=== PATIENT | male | born 1965 | race Two or more races ===

== ENCOUNTER 2019-07-25 12:34 | Emergency (ER) | payer SELFPAY ==
[~2019-07-25] VITALS: Ht 162.6 cm; Wt 90.7 kg
[2019-07-25 12:27] VITALS: BP 125/82
--- NOTE | 2019-07-25 12:33 | NUR ---
ED Nurse Note: pt walked in to ER from home with family due to coughing with white phlem and congestion x 3 days. pt also c/o upper abdoman muscle pain due to consistant cough. pt aao x4 and U[place] speaker but son is translating. pt is ambulatory, calm and cooperative. skin dry and psorasis with old scars noted. no cardiac or pulmonary distress noted at this time. fever 101.5F noted.
--- NOTE | 2019-07-25 12:50 | NUR ---
ED Nurse ERPA with pt and assessing.
--- NOTE | 2019-07-25 13:24 | Emergency Room Report ---
History of Present Illness General Chief Complaint: Flu Like Symptoms Source: Patient Present Illness HPI 54-year-old male presents to the emergency department complaining of persistent cough with fever x1 week. Patient denies any other symptoms such as body aches , pain, sore throat, neck pain/stiffness, headache, nausea or vomiting. Patient does report that he now has some 4 out of 10 severity abdominal pain during episodes of coughing. Patient states that taking a deep breath exacerbates his cough. He reports some mild sputum production. He denies significant past medical history and states he is not currently taking any medications. Patient states he was seen at an urgent care and was given some Phenergan which did not provide him any relief. He reports history of psoriasis which is also exacerbated at this time. Denies recent travel. Denies contact with persons who have tested positive for or are under investigation/ quarantine for COVID-19. Allergies: Coded Allergies: No Known Allergies (Unverified , 07/25/19) COVID-19 Screening Contact w/high risk pt: No Recent Travel to affected area: No Experienced COVID-19 symptoms?: Yes COVID-19 symptoms experienced: Fever (T>100.4F or >38C), Cough Patient History Past Medical History: see triage record Past Surgical History: none Pertinent Family History: none Immunizations: UTD Reviewed Nursing Documentation: PMH: Agreed; PSxH: Agreed Nursing Documentation-PMH Past Medical History: No History, Except For Hx Cardiac Problems: No - psorasis Review of Systems All Other Systems: negative except mentioned in HPI Physical Exam Vital Signs Date Time Temp Pulse Resp B/P (MAP) Pulse Ox O2 Delivery O2 Flow Rate FiO2 07/25/19 12:24 101.5 112 18 125/82 (96) 93 Room Air Sp02 EP Interpretation: reviewed, normal General Appearance: no apparent distress, alert, GCS 15, non-toxic Head: normocephalic, atraumatic Eyes: bilateral eye normal inspection, bilateral eye PERRL ENT: hearing grossly normal, normal voice Neck: full range of motion, no meningismus Respiratory: chest non-tender, no respiratory distress, no accessory muscle use , speaking full sentences, other - dry high pitched cough with deep inhalations on ascultation Cardiovascular #1: regular rate, rhythm, no edema, normal capillary refill, tachycardia Gastrointestinal: normal bowel sounds, non tender, soft Rectal: deferred Musculoskeletal: normal range of motion, gait/station normal, non-tender Neurologic: alert, motor strength/tone normal, oriented x3, sensory intact, responsive, speech normal Psychiatric: judgement/insight normal Skin: no rash - multiple dry cracking hyperpigmented plaques that are covered with topical cream on the bilateral hands and forehead. No blisters or vessicles , no surrounding erythema or warmth. Lymphatic: no adenopathy Medical Decision Making PA Attestation Dr. Patterson is my supervising Physician whom patient management has been discussed with. Diagnostic Impression: Primary Impression: Bronchopneumonia Additional Impression: Suspected 2019-nCoV infection ER Course 54-year-old male presents to the emergency department complaining of persistent cough with fever x1 week. Patient denies any other symptoms such as body aches , pain, sore throat, neck pain/stiffness, headache, nausea or vomiting. Patient does report that he now has some 4 out of 10 severity abdominal pain during episodes of coughing. Patient states that taking a deep breath exacerbates his cough. He reports some mild sputum production. He denies significant past medical history and states he is not currently taking any medications. Patient states he was seen at an urgent care and was given some Phenergan which did not provide him any relief. He reports history of psoriasis which is also exacerbated at this time. Denies recent travel. Denies contact with persons who have tested positive for or are under investigation/ quarantine for COVID-19. Ddx considered but are not limited to URI, pneumonia, PE, strep pharyngitis, meningitis, COVID-19, hypoxia Vital signs: Pt. is afebrile, the remaining VS are WNL H&PE are most consistent with URI- no meningeal signs, oropharynx is not involved, no evidence of bacterial infection at this time. Aside from moderate psoriasis flare, pt. is very non-toxic in appearance and NAD. The patient is not showing signs of respiratory distress and does not show signs of notable hypoxia at this time. Normal skin color, no blue lips, normal respirations. ORDERS: none required at this time, the diagnosis is clinical ED INTERVENTIONS: -Tylenol PO *repeat VS after intervention: fever is trending down, Tachycardia is trending down and O2% sat is between 94-95%. I discussed with this patient and his son who is a responsible constitution party regarding symptomatic treatment at home in addition to signs and symptoms that would indicate prompt return to the closest ER specifically symptoms that would indicate hypoxia or respiratory distress. The patient is instructed to follow- up within the next 3 days with a primary care provider for close outpatient follow-up. DISCHARGE: At this time pt. is stable for d/c to home. Will provide printed patient care instructions, and any necessary prescriptions. Care plan and follow up instructions have been discussed with the patient prior to discharge. Last Vital Signs Date Time Temp Pulse Resp B/P (MAP) Pulse Ox O2 Delivery O2 Flow Rate FiO2 07/25/19 12:27 101.5 110 18 125/82 93 Room Air Status: improved Disposition: HOME, SELF-CARE Condition: Stable Scripts Thermometer, Electronic,Oral (DIGITAL THERMOMETER) 1 Each Each EACH MC for fevers, #1 Prov: Candy Baca 07/25/19 Albuterol Sulfate* (ALBUTEROL SULFATE MDI*) 8.5 Gm Hfa.aer.ad 2 PUFF INH Q6H, #1 INH 0 Refills Prov: Candy Baca 07/25/19 Codeine/Promethazine Hcl* (PROMETHAZINE-CODEINE SYRUP*) 118 Ml Syrup 5 ML ORAL Q6H PRN for For Cough, #120 ML 0 Refills Prov: Candy Baca 07/25/19 Azithromycin* (ZITHROMAX*) 250 Mg Tablet 250 MG ORAL DAILY, #6 TAB 0 Refills Take two tables once daily for 1 day, then one tablet once daily for 4 days. Prov: Candy Baca 07/25/19 Ibuprofen (MOTRIN) 600 Mg Tablet 600 MG ORAL Q8H PRN for For Pain, #30 TAB 0 Refills Prov: Candy Baca 07/25/19 Acetaminophen* (TYLENOL EXTRA STRENGTH*) 500 Mg Tablet 500 MG ORAL Q6H, #30 TAB 0 Refills Prov: Candy Baca 07/25/19 Referrals: NOT CHOSEN [facility]/,REFERRING (PCP) Patient Instructions: Fever, Adult, [id number] Additional Instructions: Take medications as directed. Tylenol , then 4 hours later take Motrin, then 4 hours after take Tylenol. Continue switching between medications every 4 hours. Follow up with a Primary Care Provider in 3-5 days, even if your symptoms have resolved. --Please review list of primary care clinics, if you do not already have a primary care provider Return sooner to ED if new symptoms occur, or current symptoms become worse. - Please note that this Emergency Department Report was dictated using [employer]pole frame construction worker technology software, occasionally this can lead to erroneous entry secondary to interpretation by the dictation equipment. Candy Baca Jul 25, 2019 13:24
[2019-07-25] MEDS ORDERED: [UNRECOGNIZED DRUG - SUPPLY] MC (13:27)
[2019-07-25] MEDS ORDERED: IBUPROFEN600 MG ORAL (13:27)
[2019-07-25] MEDS ORDERED: PROMETHAZINE-C118 M1 ORAL (13:27)
[2019-07-25] MEDS ORDERED: TYLENOL EXTRA500 MG ORAL (13:27)
[2019-07-25] MEDS ORDERED: ZITHROMAX250 MG ORAL (13:27)
[2019-07-25] MEDS ORDERED: ALBUTEROL SULF8.5 GM INH (13:27)
[2019-07-25 13:41] VITALS: BP 126/84
--- NOTE | 2019-07-25 13:42 | NUR ---
ED Nurse Note: Pt cleared by health care Provider for discharge. Patient accompanied by a son and . DC instructions/prescription was given and explained to pt and verbalized understanding of teachings. All medical deviecs such as ID band removed. Pt is AAO x4, ambulatory and left with all personal belongings.
--- NOTE | 2019-07-25 13:45 | NUR ---
ED Nurse Note: temp upon leaving was 100.7F and oxygen 95% in room air. ERPA made aware.
== END 2019-07-25 13:42 | disposition home or self-care (01) ==
LOC: EMR 12:54
DX: J18.9 Pneumonia, unspecified organism (principal); Z03.818 Encounter for observation for suspected exposure to other biological agents ruled out; R50.9 Fever, unspecified; L40.9 Psoriasis, unspecified
CPT/HCPCS: 99282

== ENCOUNTER 2019-07-28 12:09 | Emergency (ER) | payer SELFPAY ==
[~2019-07-28] VITALS: Ht 162.6 cm; Wt 90.7 kg
[2019-07-28 12:05] VITALS: BP 120/75
[~2019-07-28 12:09] MED LIST: ALBUTEROL SULF8.5 GM INH; IBUPROFEN600 MG ORAL; PROMETHAZINE-C118 M1 ORAL; TYLENOL EXTRA500 MG ORAL; ZITHROMAX250 MG ORAL; [UNRECOGNIZED DRUG - SUPPLY] MC
--- NOTE | 2019-07-28 12:12 | NUR ---
ED Nurse Note: pt. aaox4.ambulatory. pt. walked into er from home. was recently seen here 3 days ago for flu-like symptoms. was here due to sob
[2019-07-28] MEDS ORDERED: VENTOLIN HFA18 GM INH (13:02)
--- NOTE | 2019-07-28 13:02 | Emergency Room Report ---
History of Present Illness General Chief Complaint: Dyspnea/Respdistress Source: Patient Present Illness HPI 54-year-old male with no significant past medical history who was seen at [facility] a few days ago and diagnosed with bronchopneumonia here with son complaining of continuous shortness of breath. Reports that has been using albuterol inhaler taking cough syrup, and still taking azithromycin. Sitting comfortably with stable vital signs. Oxygenation and temperature are within normal limits. Chest x-ray shows pneumonia. At this time patient does not meet criteria for hospitalization. Denies diarrhea, abdominal pain, nausea vomiting. Reports that when he uses his albuterol inhaler he coughs. Was unsure whether he is using it correctly or not. Allergies: Coded Allergies: No Known Allergies (Unverified , 07/25/19) COVID-19 Screening Contact w/high risk pt: No Recent Travel to affected area: No Experienced COVID-19 symptoms?: No COVID-19 symptoms experienced: Fever (T>100.4F or >38C), Cough Patient History Past Medical History: see triage record Past Surgical History: none Pertinent Family History: none Immunizations: UTD Reviewed Nursing Documentation: PMH: Agreed; PSxH: Agreed Nursing Documentation-PMH Past Medical History: No History, Except For Hx Cardiac Problems: No - psorasis Review of Systems All Other Systems: negative except mentioned in HPI Physical Exam Vital Signs Date Time Temp Pulse Resp B/P (MAP) Pulse Ox O2 Delivery O2 Flow Rate FiO2 07/28/19 12:05 99.1 103 20 120/75 (90) 89 Room Air Sp02 EP Interpretation: reviewed, normal General Appearance: no apparent distress, alert, GCS 15, non-toxic Head: normocephalic, atraumatic Eyes: bilateral eye normal inspection, bilateral eye PERRL ENT: hearing grossly normal, normal pharynx Neck: full range of motion, supple/symm/no masses Respiratory: chest non-tender, no rhonchi, no wheezing Cardiovascular #1: regular rate, rhythm, no murmur Gastrointestinal: non tender, soft Genitourinary: no CVA tenderness Musculoskeletal: back normal Neurologic: alert, oriented Psychiatric: normal inspection, judgement/insight normal Skin: no rash Lymphatic: no adenopathy Medical Decision Making PA Attestation All diagnoses and treatment plans were reviewed and discussed with my supervising physician Dr. Patterson Diagnostic Impression: Primary Impression: Dyspnea Additional Impression: Bronchopneumonia ER Course 54-year-old male with no significant past medical history who was seen at [facility] a few days ago and diagnosed with bronchopneumonia here with son complaining of continuous shortness of breath. Reports that has been using albuterol inhaler taking cough syrup, and still taking azithromycin. Sitting comfortably with stable vital signs. Oxygenation and temperature are within normal limits. Chest x-ray shows pneumonia. At this time patient does not meet criteria for hospitalization. Denies diarrhea, abdominal pain, nausea vomiting. Reports that when he uses his albuterol inhaler he coughs. Was unsure whether he is using it correctly or not. Ddx considered but are not limited to: Coronavirus, dyspnea strep pharyngitis, URI, tonsillitis, peritonsillar abscess, influneza Vital signs: are WNL, pt. is afebrile H&PE are most consistent with: Dyspnea most likely secondary to coronavirus ORDERS: Chest x-ray, albuterol, guaifenesin ED INTERVENTIONS: None required at this time. DISCHARGE: At this time pt. is stable for d/c to home. Will provide printed patient care instructions, and any necessary prescriptions. Care plan and follow up instructions have been discussed with the patient prior to discharge. Take medication as directed, follow-up with your primary doctor, you need to stay home for self quarantine due to Covid 19 precautions for 14 days. Patient in no distress, oxygenation and temperature within normal limit patient can be discharged back to days at the assisted living Chest X-Ray Diagnostic Results Chest X-Ray Diagnostic Results : Chest X-Ray Ordered: Yes # of Views/Limited/Complete: 1 View Indication: Shortness of Breath EP Interpretation: Yes CHAS Xray: Interpretation reviewed, by supervising MD, and agrees with findings. Interpretation: no effusion, no pneumothorax, other - Minor consolidation most likely secondary to pneumonia Impression: Other - Pneumonia Electronically Signed by: Kevon Au PA-C Last Vital Signs Date Time Temp Pulse Resp B/P (MAP) Pulse Ox O2 Delivery O2 Flow Rate FiO2 07/28/19 12:05 99.1 103 20 120/75 89 Room Air Disposition: HOME, SELF-CARE Condition: Stable Scripts Guaifenesin* (GUAIFENESIN*) 100 Mg/5 Ml Liquid 15 ML ORAL Q8H, #120 ML 0 Refills Prov: Kevon Torres 07/28/19 Albuterol Sulfate (VENTOLIN HFA) 18 Gm Hfa.aer.ad 2 PUFFS INH EVERY 6 HOURS, #18 GM 0 Refills Prov: Kevon Torres 07/28/19 Referrals: NOT CHOSEN IPA/,REFERRING (PCP) Patient Instructions: Shortness of Breath, [id number] Additional Instructions: Take medication as directed, follow-up with your primary doctor, you need to stay home for self quarantine due to Covid 19 precautions for 14 days Kevon Torres Jul 28, 2019 13:02
[2019-07-28] MEDS ORDERED: GUAIFENESI100 MG/5 M ORAL (13:18)
[2019-07-28 13:30] VITALS: BP 120/75
--- NOTE | 2019-07-28 13:31 | NUR ---
ED Nurse Note: Pt cleared by health care Provider for discharge. DC instructions/prescription was given and explained to pt and verbalized understanding of teachings. All medical deviecs such as ID band removed. Pt is AAO x4, ambulatory and left with all personal belongings.
--- NOTE | 2019-07-28 15:27 | Diagnostic Imaging Report ---
Indication: Dyspnea Comparison: None A single view chest radiograph was obtained. Findings: Ill-defined densities are demonstrated within the right midlung and both lung bases suspicious for pneumonia. Correlate clinically. Hazy groundglass opacities are present bilaterally as well. Heart is normal in size. Lung volumes are low. IMPRESSION: Patchy bilateral infiltrates. Pneumonia suspected
== END 2019-07-28 13:30 | disposition home or self-care (01) ==
LOC: EMR 12:40
DX: J18.9 Pneumonia, unspecified organism (principal); R06.00 Dyspnea, unspecified; R50.9 Fever, unspecified; L22 Diaper dermatitis
CPT/HCPCS: 71045; 99283